=== PATIENT | female | born 1935 | race Caucasian/White ===

== ENCOUNTER 2016-11-19 07:52 | Inpatient (IN) | payer OTHER ==
[~2016-11-19 07:52] MED LIST: ACETAMINOPHEN 325 MG TAB PO ONE; CEFAZOLIN 2 GM/DEXTR 100 ML IV ONE; CHLORHEXIDINE GLUC HIBICLENS 118 ML BTL TP ONE; DEXAMETHASONE 4 MG/ML VIAL IVP ONE; FAMOTIDINE 20 MG TAB PO ONE; ROPI/epiNEPH/KETOROLAC JOINT COCKTAIL IU ONE; TRANEXAMIC ACID 3,000 MG in NS 50 ML IRR ONE; TRANEXAMIC ACID 3,000 MG/50 ML BAG IRR ONE
[2016-11-19] MEDS ORDERED: fentaNYL 100 MCG/2 ML INJ ONE (09:00)
[2016-11-19] MEDS ORDERED: PROPOFOL/EMULSION 500 MG/50 ML BOTTLE IV ONE (09:01)
[2016-11-19] MEDS ORDERED: LR 1,000 ML IV ONE (09:03)
[2016-11-19] MEDS ORDERED: LIDOCAINE 1% 5 ML SDV ID PRN (09:03)
[2016-11-19] MEDS ORDERED: ACETAMINOPHEN 325 MG TAB ONE (09:10)
[2016-11-19] MEDS ORDERED: DEXAMETHASONE 4 MG/ML VIAL ONE (09:10)
[2016-11-19] MEDS ORDERED: FAMOTIDINE 20 MG TAB ONE (09:10)
[2016-11-19] MEDS ORDERED: CEFAZOLIN 2 GM/DEXTROSE/100 ML BAG IV ONE (09:11)
[2016-11-19] MEDS ORDERED: LIDOCAINE 1% 2 ML INJ ONE (09:18)
[2016-11-19] MEDS ORDERED: MIDAZOLAM 2 MG/2 ML VIAL ONE (09:55)
[2016-11-19] MEDS ORDERED: ONDANSETRON DISINTEGRATING 4 MG TAB PO PRN (11:22)
[2016-11-19] MEDS ORDERED: METOCLOPRAMIDE 10 MG/2 ML VIAL IVP PRN (11:22)
[2016-11-19] MEDS ORDERED: PROMETHAZINE HCL 25 MG/ML INJ IVP PRN (11:22)
[2016-11-19] MEDS ORDERED: ONDANSETRON 4 MG/2 ML VIAL IVP PRN (11:22)
[2016-11-19] MEDS ORDERED: CYCLOBENZAPRINE 10 MG TAB PO PRN (11:22)
[2016-11-19] MEDS ORDERED: DIPHENOXYLATE/ATROPINE LOMOTIL 1 TAB PO PRN (11:22)
[2016-11-19] MEDS ORDERED: PROMETHAZINE HCL 25 MG SUPPR PR PRN (11:22)
[2016-11-19] MEDS ORDERED: BISACODYL 10 MG SUPP PR PRN (11:22)
[2016-11-19] MEDS ORDERED: LACTULOSE 20 GM/30 ML UDCUP PO PRN (11:22)
[2016-11-19] MEDS ORDERED: POLYETHYLENE GLYCOL 3350 17 GM PKT PO PRN (11:22)
[2016-11-19] MEDS ORDERED: diphenhydrAMINE 25 MG CAP PO PRN (11:22)
[2016-11-19] MEDS ORDERED: TEMAZEPAM 15 MG CAP PO PRN (11:22)
[2016-11-19] MEDS ORDERED: MAGNESIUM HYDROXIDE 30 ML UDCUP PO PRN (11:22)
[2016-11-19] MEDS ORDERED: PHARMACY PAIN CONSULT 1 EA MISC PRN (11:22)
--- NOTE | 2016-11-19 11:22 | POSTOPPROG ---
Post Op Note Date of Operation: 11/19/16 Surgeon: Jon London Cook Tortilla: jenelle london Anesthesiologist: dr. freeman Anesthesia: Spinal Pre-op Diagnosis: right hip OA Post-op Diagnosis: same Indication: right hip pain due to OA that failed conservative measures Procedure: R SANIYA ant approach Findings: severe hip OA Inf/Abcess present in the surg proc area at time of surgery?: No EBL: 100-500
[2016-11-19] MEDS ORDERED: LR 1,000 ML IV SCH (11:30)
[2016-11-19] MEDS: ceFAZolin 2 GM/DEXTROSE 100 ML IV SCH (16:11)
[2016-11-19] MEDS: ACETAMINOPHEN 325 MG TAB PO SCH ×3 (17:29→23:59)
[2016-11-19] MEDS: SENNOSIDES/DOCUSATE SODIUM TAB PO SCH (21:00)
[2016-11-19] MEDS: ASPIRIN 325 MG TAB PO SCH (21:00)
[2016-11-19] MEDS: FAMOTIDINE 20 MG TAB PO SCH (21:01)
[2016-11-19] MEDS: oxyCODONE IR 5 MG TAB PO PRN (21:02)
[2016-11-20] MEDS: ceFAZolin 2 GM/DEXTROSE 100 ML IV SCH (00:03)
[2016-11-20 03:35] VITALS: RESP 14
[2016-11-20] MEDS: oxyCODONE IR 5 MG TAB PO PRN (03:58)
[2016-11-20 05:44] LABS: HEMATOCRIT 30.7 % (38.0-47.0); HEMOGLOBIN 10.7 g/dL (12.6-16.3)
[2016-11-20] MEDS: ACETAMINOPHEN 325 MG TAB PO SCH ×2 (05:45→12:20)
[2016-11-20 05:58] LABS: ANION GAP 5 mEq/L (8-16); CALCIUM 8.6 mg/dL (8.5-10.4); CARBON DIOXIDE 24 mEq/l (22-31); CHLORIDE 104 mEq/L (97-110); CREATININE 0.7 mg/dL (0.6-1.0); GLOMERULAR FILTRATION RATE > 60; GLUCOSE 118 mg/dL (70-100); POTASSIUM 4.1 mEq/L (3.5-5.2); SODIUM 133 mEq/L (134-144)
[2016-11-20 07:46] VITALS: BP 131/66; PULSE 87; TEMP 97.9; O2SAT 96
[2016-11-20] MEDS: FAMOTIDINE 20 MG TAB PO SCH (09:12)
[2016-11-20] MEDS: ASPIRIN 325 MG TAB PO SCH (09:12)
[2016-11-20] MEDS: SENNOSIDES/DOCUSATE SODIUM TAB PO SCH (09:12)
--- NOTE | 2016-11-20 20:04 | SOAPPROG ---
SOAP Progress Note Assessment/Plan: Assessment: Alethea is doing well POD 1 s/p R SANIYA 1) pain control: pain is well controlled on oral pain meds 2) anemia: level is expected initially postop 3) VTE ppx: recommend aspirin daily x 3 weeks 4) D/c planning: d/c to home pending release from PT Plan: 11/20/16 20:01 Subjective: Alethea is doing well today, denies SOB, chest pain and n/v. pleased with improvement in pain already. Objective: Vital Signs Temp Pulse Resp BP Pulse Ox 36.6 C 87 14 131/66 H 96 11/20/16 07:42 11/20/16 07:42 11/20/16 07:42 11/20/16 07:42 11/20/16 07:42 Laboratory Results 11/20/16 04:54 11/20/16 04:54 11/19/16 11/20/16 11/21/16 05:59 05:59 05:59 Intake Total 2790 Output Total 1500 Balance 1290 RLE: incision dressing is clean and dry, NVI, +pf/df ICD10 Worksheet Patient Problems: Problems Problem Status Onset Primary localized osteoarthritis of right hip Acute
--- NOTE | 2016-11-21 10:01 | GOP ---
[f rep st] OPERATIVE REPORT DATE OF OPERATION: 11/19/2016 SURGEON: Mini Herman MD COOL ROOFING INSTALLER: FANNIE Connors ANESTHESIA: Spinal. PREOPERATIVE DIAGNOSIS: Left hip osteoarthritis. POSTOPERATIVE DIAGNOSIS: Left hip osteoarthritis. PROCEDURE: left Total hip arthroplasty with X-ray. ESTIMATED BLOOD LOSS: 200 ml. IMPLANTS: Accolade II size ____5 at 127. The acetabular component is a _ 56____ Tritanium. The liner is a 36 X3 The head is a Biolox Delta ____36-2.5 . INDICATIONS: The patient has progressively worsening arthritis of the hip which has failed medical management. The patient understands the treatment options including continued non-operative care and has selected surgical intervention. The patient has decided to undergo total hip arthroplasty via the direct anterior approach, understanding the risks of the procedure including, but not limited to, neurovascular injury, infection, persistent pain, component wear and loosening, deep venous thrombosis, pulmonary embolism, limb length inequality, hip instability (including dislocation), and intra-operative fractures. DESCRIPTION OF PROCEDURE: After proper identification of the patient including verification and marking the surgical site, the patient was brought to the operating room and placed in the supine position. All bony prominences were well padded. Anesthesia was induced without complication and intravenous prophylactic antibiotics were administered prior to skin incision. The operative leg was placed in the Trumpf Arch table extension and the well leg in a [place] leg meehan. The patient was prepped and draped in the usual sterile fashion. The C-arm was draped for intra-operative fluoroscopy to check acetabular position, femoral component position including leg length and femoral offset. Attention was then drawn to surgical exposure of the hip. An incision was made with a #10 Bard David blade starting 3 cm lateral and 3 cm distal to the anterior superior iliac spine measuring 8-10 cm and coursing distally toward the greater trochanter. The skin and subcutaneous tissues were divided sharply down to the fascia yessi. The fascia yessi was incised in line with the skin incision exposing the underlying tensor fascia yessi muscle. The muscle was bluntly elevated from the fascia and the first extracapsular Cobra retractor was placed laterally at the junction of the superior femoral neck and greater trochanter. The lateral femoral circumflex vessels were identified, cauterized, and divided with the Aquamantys bipolar cautery. The deep investing fascia of the TFL was divided to allow proper mobilization of the muscle preventing damage during the retraction. The reflected head of the rectus femoris muscle was elevated off the anterior hip capsule and a medial Cobra retractor was placed just proximal to the lesser trochanter. The anterior capsulotomy was made sharply from the superolateral acetabulum to the saddle junction of the superior femoral neck and greater trochanter, then coursing inferomedial towards the lesser trochanter. The retractors were then placed in the intracapsular position for femoral neck osteotomy. Corresponding to pre-operative templating, the osteotomy was made with the oscillating saw carefully protecting the greater trochanter and soft tissues. The femoral head was removed from the acetabulum with a corkscrew and confirmed to be severely arthritic with exposed bone, deformity and osteophytes. Similar findings were confirmed in the acetabulum. The Arch table extension was then placed in 40 degrees external rotation. Attention was then drawn to the acetabular preparation. After placement of the anterior and posterior Cobra retractors outside the labrum and intracapsular, the circumferential labrum was removed sharply. The foveal contents were then removed and hemostasis obtained with cautery. The first reamer selected was sized using the removed femoral head. Reaming began with medialization and then commenced in 2 mm increments at 45 degrees of abduction and 15 degrees of anteversion using fluoroscopic navigation. Reaming ceased 1 mm less than the definitive acetabular component and corresponded to the pre-operative templating. The final acetabular component was inserted using fluoroscopy to achieve proper orientation yielding excellent purchase and stability in the acetabulum. The final acetabular liner was then placed and its seating confirmed. Attention was then turned to the femur. The Arch table extension was placed in extension and adduction, delivering the osteotomized femoral neck into the wound. A 2-pronged femoral elevator was placed at the calcar and another at the tip of the greater trochanter. The posterolateral capsule was released with cautery allowing mobilization of the femur lateral and anterior for preparation. The external rotators were visualized and preserved. A curette and rongeur were used to open the starting point for broaching. Serial broaching started with the #0 broach and ended with the broach that exhibited excellent fit in the proximal femur. A change in pitch during mallet strikes was accompanied by the inability to advance the broach any further. The trial reduction was performed and fluoroscopic navigation was utilized to check limb length. Adjustments were made to equalize limb length accordingly. After the final trials were accepted they were removed and the wound was copiously lavaged. The femoral component was seated to the same depth as the final broach and the femoral head was impacted onto the clean trunion. The hip was then reduced for the final time and once more fluoroscopy was used to check that limb length equality was achieved. The wound was irrigated and closed in layers, the fascia yessi with 2-0 Quill, the subcutaneous tissue with 2-0 Quill, and the skin with Dermabond. Sterile dressings were applied. Final sharps and sponge counts were accurate. The patient was then transferred to a hospital bed and brought to the recovery room in stable condition. /[id number]/MODL MTDD
--- NOTE | 2016-11-21 21:13 | GDS ---
[f rep st] DISCHARGE SUMMARY ADMISSION DIAGNOSIS: Right hip osteoarthritis. DISCHARGE DIAGNOSIS: Right hip osteoarthritis. PROCEDURE: Right total hip arthroplasty. VTE PROPHYLAXIS: Aspirin recommended for 3 weeks daily. BRIEF DESCRIPTION OF HOSPITAL STAY: Patient was admitted for an elective joint arthroplasty. The p atient tolerated the procedure well and has passed physical therapy. The patient was given appropri ate antibiotic prophylaxis and venous thromboembolism prophylaxis. The patient's pain was well cont rolled on oral pain medication, patient was holding down food, and had urinated. Decision was made to discharge the patient. The patient was given post-operative prescriptions pre-operatively. PLAN: To follow up with Dr. Herman's office on December 11 at 1:45 p.m. /[id number]/MODL
== END 2016-11-20 12:55 | disposition home or self-care (01) | DRG 470 ==
LOC: F3N 07:52
PROVIDERS: ADMIT Orthopaedic Surgery; ATTEND Orthopaedic Surgery
PROC: 0SRB04Z Replacement of Left Hip Joint with Ceramic on Polyethylene Synthetic Substitute, Open Approach (ICD-10-PCS; principal; 2016-11-19 10:15)
DX: M16.12 Unilateral primary osteoarthritis, left hip (principal); E78.00 Pure hypercholesterolemia, unspecified
CPT/HCPCS: 97110-GP; 97116-GP; 97161-GP; 97165-GO; 97530-GP; 97535-GO; G8978-GP-CJ; G8979-GP-CI; G8980-GP-CI; G8987-GO-CI; G8988-GO-CI; G8989-GO-CI; J0171; J0690; J1100; J1885; J2250; J2704; J2795; J3010

== ENCOUNTER 2018-04-28 08:00 | Inpatient (IN) | payer OTHER ==
--- NOTE | 2018-04-28 06:42 | PDHPUP ---
History & Physical Update H&P update statement: This history and physical update is based on an assessment of the patient which was completed after admission or registration (within 24 hours), but prior to the surgery/procedure. H&P update: H&P reviewed & patient examined, no change in patient's condition since H&P completed
[~2018-04-28 08:00] MED LIST changes: -ACETAMINOPHEN 325 MG TAB PO ONE; -CEFAZOLIN 2 GM/DEXTR 100 ML IV ONE; -CHLORHEXIDINE GLUC HIBICLENS 118 ML BTL TP ONE; -DEXAMETHASONE 4 MG/ML VIAL IVP ONE; -FAMOTIDINE 20 MG TAB PO ONE; -ROPI/epiNEPH/KETOROLAC JOINT COCKTAIL IU ONE; +ROPIVACAINE 0.2% 80 MG, EPINEPHrine 0.2 MG, KETOROLAC TROMETHAMINE 30 MG in SYRINGE 0 ML IU ONE; +TRANEXAMIC ACID 3,000 MG in NS (SYRINGE) 50 ML IRR ONE; -TRANEXAMIC ACID 3,000 MG in NS 50 ML IRR ONE
[2018-04-28] MEDS ORDERED: ceFAZolin 2 GM/DEXTROSE 100 ML IV ONE (10:16)
[2018-04-28] MEDS ORDERED: FAMOTIDINE 20 MG TAB PO ONE (10:16)
[2018-04-28] MEDS ORDERED: DEXAMETHASONE 4 MG/ML VIAL IVP ONE (10:16)
[2018-04-28] MEDS ORDERED: ACETAMINOPHEN 325 MG TAB PO ONE (10:16)
[2018-04-28] MEDS ORDERED: LR 1,000 ML IV ONE (10:17)
[2018-04-28] MEDS ORDERED: LIDOCAINE 1% 2 ML INJ ID PRN (10:17)
[2018-04-28] MEDS ORDERED: PROPOFOL 200 MG/20 ML VIAL ONE (10:46)
[2018-04-28] MEDS ORDERED: LIDOCAINE 2% 2 ML INJ ONE (10:46)
[2018-04-28] MEDS ORDERED: MIDAZOLAM 2 MG/2 ML VIAL ONE (10:46)
[2018-04-28] MEDS ORDERED: ONDANSETRON 4 MG/2 ML VIAL ONE (10:46)
[2018-04-28] MEDS ORDERED: PROPOFOL/EMULSION 500 MG/50 ML BOTTLE IV ONE (10:46)
[2018-04-28] MEDS ORDERED: LR 500 ML IV PRN (10:59)
[2018-04-28] MEDS ORDERED: MEPERIDINE 25 MG/0.5 ML AMP IVP PRN (10:59)
[2018-04-28] MEDS ORDERED: HYDROmorphONE/DILAUDID 2 MG/ML INJ IVP PRN (10:59)
[2018-04-28] MEDS ORDERED: fentaNYL 100 MCG/2 ML INJ IVP PRN (10:59)
[2018-04-28] MEDS ORDERED: PHENYLEPHRINE HCL 100 MCG/ML SYR IVP PRN (10:59)
[2018-04-28] MEDS ORDERED: PROMETHAZINE HCL 25 MG/ML INJ IVP PRN ×2 (10:59→13:25)
[2018-04-28] MEDS ORDERED: NALOXONE HCL 0.4 MG/ML INJ IVP PRN (10:59)
[2018-04-28] MEDS ORDERED: oxyCODONE IR 5 MG TAB PO PRN ×2 (10:59→13:25)
[2018-04-28] MEDS ORDERED: ONDANSETRON 4 MG/2 ML VIAL IVP PRN ×2 (10:59→13:25)
--- NOTE | 2018-04-28 10:59 | PDANEPAE ---
ANE Past Medical History - Cardiovascular History Hx Hypertension: No Hx Arrhythmias: No Hx Chest Pain: No Hx Coronary Artery / Peripheral Vascular Disease: No Hx CHF / Valvular Disease: No Hx Palpitations: No Cardiovascular History Comment: HYPERCHOLESTEROLEMIA - Pulmonary History Hx COPD: No Hx Asthma/Reactive Airway Disease: No Hx Recent Upper Respiratory Infection: No Hx Oxygen in Use at Home: No Hx Sleep Apnea: No Sleep Apnea Screening Result - Last Documented: Negative - Neurologic History Hx Cerebrovascular Accident: No Hx Seizures: No Hx Dementia: No - Endocrine History Hx Diabetes: No - Renal History Hx Renal Disorders: No - Liver History Hx Hepatic Disorders: No - Neurological & Psychiatric Hx Hx Neurological and Psychiatric Disorders: No - Cancer History Hx Cancer: No Cancer History Comment: SKIN CA NOSE - Congenital Disorder History Hx Congenital Disorders: No - GI History Hx Gastrointestinal Disorders: No - Other Health History Other Health History: NEG - Chronic Pain History Chronic Pain: Yes (DANDY HIPS) - Surgical History Prior Surgeries: L KNEE MENISCUS ANE Review of Systems Review of Systems: - Exercise capacity METS (RN): 4 METS ANE Patient History - Allergies Allergies/Adverse Reactions: amoxicillin [Amoxicillin] Allergy (Verified 04/12/18 11:17) Vomiting - Home Medications Home Medications: Herbals/Supplements -Info Only 1 ea PO DAILY 10/22/16 [Last Taken 04/19/18] Glucosamine/Chondroitin [Glucosamine/Chondroitin (*)] 1 each PO DAILY 04/12/18 [ Last Taken 04/19/18] Ibuprofen [Motrin (*)] 200 mg PO DAILY PRN 04/12/18 [Last Taken 04/19/18] Multivitamins [Multivitamin (*)] 1 each PO DAILY 04/13/18 [Last Taken 04/19/18] - Smoking Hx Smoking Status: Former smoker - Family Anes Hx Family Hx Anesthesia Complications: NEG ANE Labs/Vital Signs - Vital Signs Height: 167.64 cm Weight: 59.874 kg ANE Physical Exam - Airway Neck exam: FROM Mallampati Score: Class 1 Mouth exam: normal dental/mouth exam - Pulmonary Pulmonary: no respiratory distress, no rales or rhonchi, clear to auscultation - Cardiovascular Cardiovascular: regular rate and rhythym, no murmur, rub, or gallop - ASA Status ASA Status: II ANE Anesthesia Plan Anesthesia Plan: spinal
[2018-04-28] MEDS ORDERED: CYCLOBENZAPRINE 10 MG TAB PO PRN (13:25)
[2018-04-28] MEDS ORDERED: POLYETHYLENE GLYCOL 3350 17 GM PKT PO PRN (13:25)
[2018-04-28] MEDS ORDERED: METOCLOPRAMIDE 10 MG/2 ML VIAL IVP PRN (13:25)
[2018-04-28] MEDS ORDERED: ONDANSETRON DISINTEGRATING 4 MG TAB PO PRN (13:25)
[2018-04-28] MEDS ORDERED: diphenhydrAMINE 25 MG CAP PO PRN (13:25)
[2018-04-28] MEDS ORDERED: PROMETHAZINE HCL 25 MG SUPPR PR PRN (13:25)
[2018-04-28] MEDS ORDERED: LACTULOSE 20 GM/30 ML UDCUP PO PRN (13:25)
[2018-04-28] MEDS ORDERED: TEMAZEPAM 15 MG CAP PO PRN (13:25)
[2018-04-28] MEDS ORDERED: DIPHENOXYLATE/ATROPINE LOMOTIL 1 TAB PO PRN (13:25)
[2018-04-28] MEDS ORDERED: BISACODYL 10 MG SUPP PR PRN (13:25)
[2018-04-28] MEDS ORDERED: MAGNESIUM HYDROXIDE 30 ML UDCUP PO PRN (13:25)
--- NOTE | 2018-04-28 13:25 | POSTOPPROG ---
Post Op Note Date of Operation: 04/28/18 Surgeon: Jon London Clinical Practitioner: jenelle london PA-C Anesthesiologist: dr. Eid Anesthesia: Spinal Pre-op Diagnosis: left hip OA Post-op Diagnosis: same Indication: left hip pain Procedure: L SANIYA ant approach Findings: severe hip OA Inf/Abcess present in the surg proc area at time of surgery?: No EBL: 100-500
[2018-04-28] MEDS ORDERED: LR 1,000 ML IV SCH (13:30)
[2018-04-28] MEDS ORDERED: fentaNYL 100 MCG/2 ML INJ ONE (13:46)
--- NOTE | 2018-04-28 14:35 | POSTANESTH ---
Post Anesthetic Evaluation Cardiovascular Status: Normal, Stable Respiratory Status: Normal, Stable Level of Consciousness/Mental Status: Can Participate in Eval Pain Control: Adequate, Prn Tx Ordered Nausea/Vomiting Control: Adequate, Prn Tx Ordered Complications Possibly Related to Anesthesia: None Noted
--- NOTE | 2018-04-28 15:37 | PDMN ---
Medical Necessity Medical necessity: Pt meets inpt criteria per MD order and [facility] [place], [place] S-560, Hip Arthroplasty, Medicare inpt only surg list. 82 y/o admitted for L SANIYA, ant approach, and post-op care, anticipate>2MN.
[2018-04-28] MEDS: ACETAMINOPHEN 325 MG TAB PO SCH ×2 (18:00→23:23)
[2018-04-28] MEDS: ceFAZolin 2 GM/DEXTROSE 100 ML IV SCH (20:12)
[2018-04-28] MEDS: ASPIRIN 81 MG CHEWABLE TAB PO SCH (20:15)
[2018-04-28] MEDS: SENNOSIDES/DOCUSATE SODIUM TAB PO SCH (20:15)
[2018-04-28] MEDS: FAMOTIDINE 20 MG TAB PO SCH (20:15)
[2018-04-29] MEDS: ceFAZolin 2 GM/DEXTROSE 100 ML IV SCH (04:18)
[2018-04-29] MEDS: ACETAMINOPHEN 325 MG TAB PO SCH ×2 (04:58→11:34)
[2018-04-29 07:48] VITALS: BP 118/63
[2018-04-29] MEDS: ASPIRIN 81 MG CHEWABLE TAB PO SCH (08:19)
[2018-04-29] MEDS: FAMOTIDINE 20 MG TAB PO SCH (08:19)
[2018-04-29] MEDS: SENNOSIDES/DOCUSATE SODIUM TAB PO SCH (08:19)
--- NOTE | 2018-04-29 08:37 | SOAPPROG ---
SOAP Progress Note Assessment/Plan: Assessment: Patient is doing well POD 1 s/p L SANIYA Pain management: pain is well controlled on oral pain meds. VTE ppx: recommend aspirin 81 mg BID for 4 weeks, cont JARETH and SCDs Anemia: level is expected initially postop. Asymptomatic. Continue to monitor D/c planning: d/c to home today pending release from PT. patient has done better than anticipated, ok for discharge to home Plan: 04/29/18 08:36 Subjective: toya is doing well today, denies SOB ,chest pain and N/v Objective: Vital Signs Temp Pulse Resp BP Pulse Ox 36.6 C 84 12 118/63 95 04/29/18 07:48 04/29/18 07:48 04/29/18 07:48 04/29/18 07:48 04/29/18 07:48 Laboratory Results 04/29/18 04:54 04/29/18 04:54 04/28/18 04/29/18 04/30/18 05:59 05:59 05:59 Intake Total 2395 Output Total 2620 Balance -225 LLE: incision dressing is clean and dry, NIV, +pf/df ICD10 Worksheet Patient Problems: Problems Problem Status Onset Primary localized osteoarthritis of left hip Acute Primary localized osteoarthritis of right hip Acute
--- NOTE | 2018-04-29 09:14 | GOP ---
DATE OF OPERATION: 04/28/2018 SURGEON: Mini Herman MD SOLID WASTE ENGINEER: LARS Rodriguez. ANESTHESIA: Spinal. PREOPERATIVE DIAGNOSIS: Left hip osteoarthritis. POSTOPERATIVE DIAGNOSIS: Left hip osteoarthritis. PROCEDURE PERFORMED: Left total hip arthroplasty. FINDINGS: ESTIMATED BLOOD LOSS: 200 cc. INDICATIONS: The patient has progressively worsening arthritis of the hip which has failed medical m anagement. The patient understands the treatment options including continued non-operative care and has selected surgical intervention. The patient has decided to undergo total hip arthroplasty via th e direct anterior approach, understanding the risks of the procedure including, but not limited to, n eurovascular injury, infection, persistent pain, component wear and loosening, deep venous thrombosis , pulmonary embolism, limb length inequality, hip instability (including dislocation), and intra-oper ative fractures. DESCRIPTION OF PROCEDURE: After proper identification of the patient including verification and josiane ing the surgical site, the patient was brought to the operating room and placed in the supine positio n. All bony prominences were well padded. Anesthesia was induced without complication and intraveno us prophylactic antibiotics were administered prior to skin incision. The operative leg was placed in the Trumpf Arch table extension and the well leg in a [place] leg ho lder. The patient was prepped and draped in the usual sterile fashion. The C-arm was draped for int ra-operative fluoroscopy to check acetabular position, femoral component position including leg lengt h and femoral offset. Attention was then drawn to surgical exposure of the hip. An incision was made with a #10 Bard Ruddy r blade starting 3 cm lateral and 3 cm distal to the anterior superior iliac spine measuring 8-10 cm and coursing distally toward the greater trochanter. The skin and subcutaneous tissues were divided sharply down to the fascia yessi. The fascia yessi was incised in line with the skin incision exposing the underlying tensor fascia yessi muscle. The muscle was bluntly elevated from the fascia and the f irst extracapsular Cobra retractor was placed laterally at the junction of the superior femoral neck and greater trochanter. The lateral femoral circumflex vessels were identified, cauterized, and divi ded with the Aquamantys bipolar cautery. The deep investing fascia of the TFL was divided to allow p baylee mobilization of the muscle preventing damage during the retraction. The reflected head of the rectus femoris muscle was elevated off the anterior hip capsule and a medial Cobra retractor was plac ed just proximal to the lesser trochanter. The anterior capsulotomy was made sharply from the superolateral acetabulum to the saddle junction of the superior femoral neck and greater trochanter, then coursing inferomedial towards the lesser troc hanter. The retractors were then placed in the intracapsular position for femoral neck osteotomy. C orresponding to pre-operative templating, the osteotomy was made with the oscillating saw carefully p rotecting the greater trochanter and soft tissues. The femoral head was removed from the acetabulum with a corkscrew and confirmed to be severely arthritic with exposed bone, deformity and osteophytes. Similar findings were confirmed in the acetabulum. The Arch table extension was then placed in 40 degrees external rotation. Attention was then drawn to the acetabular preparation. After placement of the anterior and posterio r Cobra retractors outside the labrum and intracapsular, the circumferential labrum was removed sharp ly. The foveal contents were then removed and hemostasis obtained with cautery. The first reamer selected was sized using the removed femoral head. Reaming began with medialization and then commenced in 2 mm increments at 45 degrees of abduction and 15 degrees of anteversion using fluoroscopic navigation. Reaming ceased 1 mm less than the definitive acetabular component and koko esponded to the pre-operative templating. The final acetabular component was inserted using fluorosc opy to achieve proper orientation yielding excellent purchase and stability in the acetabulum. The f inal acetabular liner was then placed and its seating confirmed. Attention was then turned to the femur. The Arch table extension was placed in extension and adducti on, delivering the osteotomized femoral neck into the wound. A 2-pronged femoral elevator was placed at the calcar and another at the tip of the greater trochanter. The posterolateral capsule was rele ased with cautery allowing mobilization of the femur lateral and anterior for preparation. The exter nal rotators were visualized and preserved. A curette and rongeur were used to open the starting poi nt for broaching. Serial broaching started with the #0 broach and ended with the broach that exhibit ed excellent fit in the proximal femur. A change in pitch during mallet strikes was accompanied by t he inability to advance the broach any further. The trial reduction was performed and fluoroscopic n avigation was utilized to check limb length. Adjustments were made to equalize limb length according ly. After the final trials were accepted they were removed and the wound was copiously lavaged. The femo ral component was seated to the same depth as the final broach and the femoral head was impacted onto the clean trunnion. The hip was then reduced for the final time and once more fluoroscopy was used to check that limb length equality was achieved. The wound was irrigated and closed in layers, the fascia yessi with 2-0 Quill, the subcutaneous tissue with 2-0 Quill, and the skin with Dermabond. Sterile dressings were applied. Final sharps and spon ge counts were accurate. The patient was then transferred to a hospital bed and brought to the [facility] room in stable condition. IMPLANTS: Accolade II size 6 at 127, acetabular component a Trident II 56 mm, liner is a Trident X3 36 mm, head is a Biolox Delta at 36 mm +3.0. /[id number]/MODL
--- NOTE | 2018-04-29 09:44 | ASMTLACE ---
LACE Length of stay for Answers: 2 days current admission Acuity / Level of Answers: Yes Care: Did the patient have an inpatient admission? Comorbidities - select Answers: Opioid dependence all that apply / Chronic pain # of Emergency department Answers: 0 visits in the last 6 months Score: 9 Date Signed: 04/29/2018 09:43 AM Electronically Signed By:JARAD Husseni
== END 2018-04-29 12:15 | disposition home or self-care (01) | DRG 470 ==
LOC: F3N 10:00
PROVIDERS: ADMIT Orthopaedic Surgery; ATTEND Orthopaedic Surgery
PROC: 0SRB04Z Replacement of Left Hip Joint with Ceramic on Polyethylene Synthetic Substitute, Open Approach (ICD-10-PCS; principal; 2018-04-28 12:00)
DX: M16.12 Unilateral primary osteoarthritis, left hip (principal); Z96.641 Presence of right artificial hip joint
CPT/HCPCS: 97116-GP; 97161-GP; G8978-GP-CJ; G8979-GP-CI; G8980-GP-CI; J0171; J0690; J1100; J1885; J2250; J2405; J2704; J2795; J3010